=== PATIENT | female | born 1980 | race Caucasian/White ===

== ENCOUNTER → 2016-03-27 | Outpatient (CLI) | payer OTHER ==
--- NOTE | 2016-03-27 11:48 | US ---
March 27, [address] Nieves, Thank you for allowing me to see your patient, Mrs. Mayersfor aneuploidy screening and con sult. As you know she is a , 35 year old G 3, P 1101 . Her due date is 10/01/16 by 6 week ultrasoun d. Based on this dating her current gestational age is 13 weeks 1 day(s) . Saima is known to me from her prior and preconception consultation (02/10/13). Briefly, she suffered a stillbirth at 31 weeks with a negative workup except for clots identified in the umbilical cord. Her next pregnan cy was successful and delivered at 37 weeks by induction of labor. We provided additional ultrasound surveillance and antepartum testing in her next . She had reassuring NIPT in this . ULTRASOUND CRL: 78 mm Gestational Age by CRL: 13 weeks 4 days RUBEN by CRL: 09/28/16 Consistent with established dating (LMP or ultrasound): Yes Nuchal Translucency: 1.4 mm Nasal Bone: Present Heart Rate: 161 bpm Placenta: Fundal posterior Right Ovary: Is not seen on today's ultrasound. Left Ovary: Is not seen on today's ultrasound. No overt structural anomalies were identified for this early ultrasound. The choroids, cord insertion , upper extremities and lower extremities were visualized and appear normal for this gestational age. Please note the full anatomic evaluation has not occurred for this early gestational age. Impression: 1. Intrauterine at 13 w, 1 d, RUBEN of 10/01/16. 2. Nuchal translucency measurement today is 1.4 mm, which is reassuring. 3. Advanced maternal age with reassuring NIPT 4. History of third trimester stillbirth Recommendations: 1. Maternal serum AFP is recommended between 15-20 weeks to screen for the risk of open neural tube defects. 2. Recommend a detailed obstetrical ultrasound between 19 and 20 weeks to evaluate anatomy. 3. Reviewed opportunities for definitive genetic diagnosis by CVS and/or amniocentesis. After our c onversation, your couple DECLINES further testing. 4. Reviewed plans for surveillance in the current given her history of stillbirth -Continue usual care -20 week anatomy ultrasound -Growth at 26 weeks, then monthly until delivery -Twice weekly NSTs (started in last at 28-29 weeks given stillbirth at 31 weeks) -Delivery at early term --37 weeks. Thank you for allowing us the opportunity to evaluate your patient. Should you have any further ques tions or concerns please do not hesitate to contact me. Approximately 15 minutes were spent with the patient and 10 minutes were spent in face to face consu ltation. Joya Gaytan MD [employer] Mixer Operator Maternal Medicine Department of Obstetrics & Gynecology [facility]
--- NOTE | 2016-03-27 12:10 | US ---
Obstetrical Sonogram History: 35-year-old with estimated gestational age of 13 weeks 1 day and EDC of October 01, 2016. Comparison: None available. Findings: There is a single living intrauterine with a heart rate of 161 beats per minute. Average crown-rump length is 7.8 cm, for estimated gestational age of 13 weeks 4 days. Nuchal trans lucency is 1.4 mm. The nasal bone is visible. The amniotic fluid volume is subjectively normal. No overt anatomic abnormality is identified, although assessment is limited by early gestational age. The placenta is posterior/fundal. The ovaries are not visible. Impression: 1. Single living intrauterine gestation with size consistent with dates. 2. Normal nuchal translucency. 3. Detailed anatomic survey is recommended at 19-20 weeks. Please see separate dictation for consultation performed by Joya Mei MD, the same day.
== END ==
LOC: FIMAGING 10:33
PROVIDERS: ATTEND Obstetrics & Gynecology
DX: O09.522 Supervision of elderly multigravida, second trimester (principal); Z3A.13 13 weeks gestation of pregnancy; Z87.59 Personal history of other complications of pregnancy, childbirth and the puerperium

== ENCOUNTER → 2016-05-08 | Outpatient (CLI) | payer OTHER | LOC: FIMAGING 10:35 | PROVIDERS: ATTEND Obstetrics & Gynecology | DX: O09.522 Supervision of elderly multigravida, second trimester (principal); O09.292 Supervision of pregnancy with other poor reproductive or obstetric history, second trimester; Z3A.19 19 weeks gestation of pregnancy ==

== ENCOUNTER 2016-07-02 07:40 | Observation (INO) | payer OTHER ==
[2016-07-02 09:23] LABS: % IMMATURE GRANULYOCYTES 1.4 % (0.0-1.1); ABSOLUTE IMMATURE GRANULOCYTES 0.17 10^3/uL (0.00-0.10); ADD DIFF? NO; ADD MORPH? NO; ADD SCAN? NO; ATYPICAL LYMPHOCYTE FLAG 10 (0-99); COLOR YELLOW; FRAGMENT RBC FLAG 0 (0-99); HEMATOCRIT 36.5 % (38.0-47.0); HEMOGLOBIN 12.5 g/dL (12.6-16.3); LEFT SHIFT FLG 10 (0-99); LEUKOCYTE ESTERASE,URINE NEGATIVE (NEGATIVE); LIPEMIA HEMOLYSIS FLAG 90 (0-99); MEAN CELL HEMOGLOBIN CONCENTR. 34.2 g/dL (32.4-36.7); MEAN CELL VOLUME 87.7 fL (81.5-99.8); MEAN PLATELET VOLUME 9.7 fL (8.7-11.7); NITRITE,URINE NEGATIVE (NEGATIVE); PLATELET CLUMPS FLAG 10 (0-99); PLATELET COUNT 257 10^3/uL (150-400); RED BLOOD CELL COUNT 4.16 10^6/uL (4.18-5.33); RED CELL DISTRIBUTION WIDTH 13.3 % (11.5-15.2)
[2016-07-02 09:29] LABS: BACTERIA 4+ /hpf (NONE SEEN); MUCUS TRACE /lpf (NONE-1+)
--- NOTE | 2016-07-02 10:15 | GHP ---
[f rep st] HISTORY AND PHYSICAL DATE OF ADMISSION: 07/02/2016 CHIEF COMPLAINT: Vaginal bleeding. HISTORY OF PRESENT ILLNESS: The patient is a healthy 35-year-old G3, P1-1-0-1. Her current gestational age is 27 weeks 0 days, dated by last menstrual period and first trimester ultrasound. Her is complicated by advanced maternal age with normal genetic screening, and a history of an intrauterine demise at 31 weeks in her first . She had a negative hypercoagulability workup, but has been on 81 mg of aspirin this . She states that she woke up this morning, and there was a large gush of bright red blood on her underwear. She was advised to come in for evaluation. She denies loss of fluid, abdominal pain or contractions. Her baby remains active. OB labs are notable for blood type O positive, negative antibody screen, hematocrit 42.2. Immune to rubella, nonimmune to varicella, nonreactive to HIV , RPR, and hepatitis B surface antigen, negative urine culture. She has a negative gonorrhea and chlamydia screen. Her 1 hour Glucola was 88. She had a normal cell-free DNA, single marker AFP, and anatomy ultrasound, with an anterior placenta with no previa. PAST MEDICAL HISTORY: Psoriasis, seasonal allergies. History of vaginal delivery x2; in 2012, for a demised fetus at 31 weeks 5 days, and then again a term viable in 2013. SURGICAL HISTORY: None. FAMILY HISTORY: Notable for colon cancer in her maternal grandfather, and history of blood clot in her father. MEDICATIONS: vitamins, aspirin 81 mg. ALLERGIES: None. PHYSICAL EXAMINATION: 125/64, 100, 18, 37.0 GENERAL: Alert, awake, in no acute distress. Alert and oriented x4. LUNGS: Respirations unlabored. CARDIOVASCULAR: Regular rate and rhythm. ABDOMEN: Gravid, soft, nontender. EXTREMITIES: No edema. PELVIC: Sterile speculum exam: Small dark clot of blood removed from vault. Cervix closed in appearance. Very slight trickle of bright blood coming from inside cervix noted. Sterile vaginal exam: Cervix long, closed. FHR baseline 140s, moderate variability, + accels, no decels [place]: mild irritability DIAGNOSTIC STUDIES: Bedside transabdominal ultrasound: Viable fetus in mehrdad breech presentation, anterior placenta which is normal in appearance. Subjectively normal fluid. Cervix appears long and closed. LABORATORY DATA: White blood cell count 11.7, hemoglobin 12.5, hematocrit 36.5 , platelets 257. Urinalysis is normal apart from blood, 4+ bacteria, 4+ glucose , 5-10 RBCs, and 5-10 white blood cells. Urine culture is pending. Group B strep pending. ASSESSMENT AND PLAN: 35-year-old G3, P1101 at 27 weeks 0 days, presents with vaginal bleeding. No evidence of infection, no evidence of labor. No evidence of abruption. status reassuring. Given the fact that she has a slight ongoing trickle of bright red blood, recommend to overnight for monitoring. She is already scheduled for a repeat ultrasound with Maternal Medicine tomorrow, given her history of intrauterine demise. We discussed the risks and benefits of administering corticosteroids for lung maturity. After discussion, she and her would like to hold off on administering steroids at this time, and would only like to proceed if there is a more imminent concern for delivery. Magnesium for neuroprotection not indicated at this time. -Admit to L&D for obs -Regular diet -Saline lock IV -CBC and type and screen collected -Continue monitoring for 1-2 hours, and then if reassuring, will plan for an NST t.i.d. /[id number]/MODL MTDD
--- NOTE | 2016-07-03 08:22 | GDS ---
[f rep st] DISCHARGE SUMMARY ADMISSION DIAGNOSES: 1. Twenty-seven weeks 0 days gestation. 2. Vaginal bleeding in . 3. History of term spontaneous vaginal delivery. 4. History of 31-week intrauterine demise. DISCHARGE DIAGNOSES: 1. Twenty-seven weeks 0 days gestation. 2. Vaginal bleeding in . 3. History of term spontaneous vaginal delivery. 4. History of 31-week intrauterine demise. PROCEDURES: None. CONSULTATIONS: None. HOSPITAL COURSE: Patient is a 35-year-old, G3, P1-1-0-1. She was admitted at 27 weeks 0 days when she awoke with underwear that was soaked with bright-red blood. She was brought to the hospital and was found to have a very slight trickle of ongoing bright-red blood, so she was admitted for furthe r observation. Her monitoring was reassuring. Her cervix was long and closed and there was n o evidence of labor. After admission, she stopped bleeding completely and over the course o f observation overnight she had just very light brown spotting, but no further bright-red blood and no cramping or contractions or evidence of labor. Her status continued to be reassuri ng with reactive heart rate tracing. Should be discharged to home, as she has a formal ultras ound with Maternal Medicine today to follow up growth, and she will also follow up with Dr. Jose G valadez as scheduled in 1 week. DISCHARGE INSTRUCTIONS: Pelvic rest for 72 hours. No lifting greater than 20 pounds. Call for any further bleeding, contractions, or other concerns. DISCHARGE MEDICATIONS: Continue home vitamins. DISPOSITION: Home. CONDITION ON DISCHARGE: Good. /[id number]/MODL
== END 2016-07-03 08:40 | disposition home or self-care (01) ==
LOC: FLD 07:40
PROVIDERS: ADMIT Obstetrics & Gynecology; ATTEND Obstetrics & Gynecology
DX: O46.92 Antepartum hemorrhage, unspecified, second trimester (principal); O09.512 Supervision of elderly primigravida, second trimester; Z3A.27 27 weeks gestation of pregnancy
CPT/HCPCS: G0378 ×2

== ENCOUNTER 2016-07-03 10:30 | Inpatient (IN) | payer OTHER ==
[2016-07-03] MEDS ORDERED: BETAMETHASONE IM SYRINGE IM ONE (13:30)
[2016-07-03] MEDS ORDERED: CALCIUM CARBONATE 500 MG CHEWABLE TAB PO PRN ×2 (14:37→19:54)
[2016-07-03] MEDS ORDERED: ACETAMINOPHEN 325 MG TAB PO PRN (14:37)
--- NOTE | 2016-07-03 15:03 | GHP ---
[f rep st] HISTORY AND PHYSICAL DATE OF ADMISSION: 07/03/2016 CHIEF COMPLAINT: Concern for placental abruption on ultrasound. HISTORY OF PRESENT ILLNESS: The patient is a 35-year-old G3, P1-1-0-1, who was just discharged from the hospital this morning after having an episode of vaginal bleeding yesterday morning at home and being observed in the hospital for 24 hours. She was sent to a previously scheduled maternal medicine ultrasound, which was being done for a history of intrauterine demise at 31 weeks, which occurred in her 1st . The ultrasound demonstrated a 3.5 x 1.5 cm heterogeneous area of the placenta near the uterine fundus concerning for a partial abruption. It was recommended that she return back to labor and delivery for corticosteroid administration for lung maturity and further monitoring. She is currently feeling well. She denies any vaginal bleeding since yesterday. No contractions or pain. Her baby is active. She is 27 weeks, 1 day dated by last menstrual period and first-trimester ultrasound. OB labs are notable for blood type O positive, negative antibody screen, hematocrit 42.2. She is immune to rubella, not immune to varicella, nonreactive to HIV, RPR, and hepatitis B surface antigen with a negative urine culture. She has a negative gonorrhea and chlamydia screen. Her 1 hour Glucola was 88. She had a normal cell free DNA single marker AFP amniotomy ultrasound with an anterior placenta with no previa. PAST MEDICAL HISTORY: Psoriasis, seasonal allergies, history of vaginal delivery x2 in 2012 for demised fetus at 31 weeks 5 days, then again a term viable in 2013. SURGICAL HISTORY: None. FAMILY HISTORY: Notable for colon cancer in her maternal grandfather and a history of VTE in her father. MEDICATIONS: vitamins, aspirin 81 mg, Tylenol 325 mg p.r.n., Tums, Claritin p.r.n. ALLERGIES: None. SOCIAL HISTORY: . No alcohol, tobacco, drugs. She is a building supplies salesperson retail PHYSICAL EXAM: VITAL SIGNS: Within normal limits. GENERAL: Alert, awake, in no acute distress. LUNGS: Respirations nonlabored. CARDIOVASCULAR: Regular rate and rhythm. ABDOMEN: Gravid, soft, nontender. EXTREMITIES: No edema. PELVIC: Deferred. heart rate baseline 140s, moderate variability with 10 x 10 accelerations, no decelerations. Tocometer: No contractions. ASSESSMENT AND PLAN: Patient is a 35-year-old, G3, P1-1-0-1 at 27 weeks 1 day, here with vaginal bleeding that occurred yesterday and evidence of possible partial abruption on ultrasound today. She is currently hemodynamically stable. She has no bleeding, no evidence of labor, and a reassuring status. A GBS swab was collected yesterday and is pending. Urinalysis was normal apart from some blood and bacteria, and a urine culture is pending. Will admit to Labor and Delivery for observation for a minimum of 72 hours, administer corticosteroids for lung maturity, plan monitoring twice daily, regular diet, saline lock IV, regular activity. Possibly home in 72 hours if no further bleeding. /[id number]/MODL MTDD
[2016-07-03] MEDS ORDERED: diphenhydrAMINE 25 MG CAP PO PRN (21:38)
[2016-07-04 09:11] VITALS: BP 109/71; PULSE 109; RESP 16; TEMP 97.9
--- NOTE | 2016-07-04 12:53 | OBPROG ---
OBG Progress Note Assessment/Plan: Assessment: Pt is a 35 y/o at 27+2 weeks EGA admitted with vaginal bleeding, suspected placental abruption - HD#2, hemodynamically stable Plan: 1) status reassuring. Continue with NST BID. BTMZ dose #2 today. 2) Bleeding, resolved. Suspect clinically c/w placental abruption. Will continue observation as inpatient x 72 hrs. 3) Bedrest w/ BRP 4) SCD's for DVT prophylaxis. 5) May restart home meds of tums prn, claritin prn. Hold ASA daily due to bleeding. Counseled regarding POC and likely plan for bedrest at home if discharged in stable condition. 07/04/16 12:53 Subjective: Pt has no complaints. No vaginal bleeding. Small amount of vaginal discharge, but no itching or foul smell. No abdominal pain. +FM. No LOF. No CTX. Objective: Temp Pulse Resp BP Pulse Ox 36.6 C 109 H 16 109/71 07/04/16 09:09 07/04/16 09:09 07/04/16 09:09 07/04/16 09:09 FHR (bpm): 140 FHR Pattern Variability: Moderate FHR Category: 1 - Physical Exam General Appearance: WD/WN, alert, no apparent distress Respiratory: lungs clear Cardiac/Chest: regular rate, rhythm Abdomen: normal bowel sounds, other (gravid, nontender) ICD10 Worksheet Patient Problems: Problems Problem Status Onset Vaginal bleeding in Acute
[2016-07-04] MEDS ORDERED: BETAMETHASONE IM SYRINGE IM ONE (13:30)
[2016-07-04] MEDS: FAMOTIDINE 20 MG TAB PO SCH (20:18)
[2016-07-04] MEDS: diphenhydrAMINE 25 MG CAP PO PRN (20:50)
--- NOTE | 2016-07-05 15:46 | OBPROG ---
OBG Progress Note Assessment/Plan: Assessment: Pt is a 35 y/o at 27+3 weeks EGA admitted with vaginal bleeding, suspected placental abruption - HD#3, hemodynamically stable Plan: 1) status reassuring. Continue with NST BID. s/p BTMZ course completed. 2) Bleeding c/w placental abruption, resolved. Discussed that her brown discharge is c/w old blood, and the pink discharge is not concerning; likely from vaginal discharge. Will continue observation as inpatient x 72 hrs. 3) Bedrest w/ BRP 4) SCD's for DVT prophylaxis. 5) Dispo: Anticipate discharge home tomorrow if she remains clinically stable. Counseled regarding POC and likely plan for bedrest at home if discharged in stable condition. 07/05/16 1340 Subjective: Pt reports having one episode of brown discharge and one episode of pink discharge in the last 24hrs. Mild cramping with ambulation that resolved with rest, no ctx, no BTB, no LOF. Good FM present. No other concerns. Objective: Temp Pulse Resp BP Pulse Ox 36.6 C 109 H 16 109/71 07/04/16 09:09 07/04/16 09:09 07/04/16 09:09 07/04/16 09:09 FHR (bpm): 140 FHR Pattern Variability: Moderate FHR Category: 1 - Physical Exam General Appearance: WD/WN, alert, no apparent distress Respiratory: lungs clear Cardiac/Chest: regular rate, rhythm Abdomen: normal bowel sounds, other (gravid, fundus nontender) ICD10 Worksheet Patient Problems: Problems Problem Status Onset Vaginal bleeding in Acute
--- NOTE | 2016-07-05 17:46 | OBPROG ---
OBG Progress Note Assessment/Plan: Assessment: 27w3d with partial abruption (VB and US e/o abruption) s/p BMTZ No further VB Mild cramping today: no e/o PTL Dec movement over last few hours: Reassuring heart rate tracing Plan: Send urine cx as this was not done on admission (UA sent but cx never was) Will put back on monitor if c/o any further cramping, at this time just endorsing mild soreness in lower abdomen Plan repeat CBC tomorrow to eval for further ongoing bleeding from abruption Dispo to be determined tomorrow, likely home if remains clinically stable Discussed mag sulfate for neuroprotection if any concern for imminent del < 32 weeks 07/05/16 17:42 07/05/16 17:44 Subjective: Called by RN as pt feeling some soreness in lower abdomen and intermittent mild cramping and baby moving slightly less. Still no further BRB, but intermittent light pink/brown discharge with wiping. Objective: Temp Pulse Resp BP Pulse Ox 36.6 C 109 H 16 109/71 07/04/16 09:09 07/04/16 09:09 07/04/16 09:09 07/04/16 09:09 Gen: alert, awake NAD Resp: unlabored CV: RRR Abd: gravid, soft, nontender Ext: no edema SSE: cervix long/closed, no active bleeding SVE: cervix firm, long/closed FHT: Baseline 140, mod [place], + 10x10 accels, carrot stick variable decels appropriate for gestational age [place]:mild irritability with possible ctx x 3 when toco first placed, then resolved throughout remainder of strip with quiet toco - SVE Dilation (cm): 0 Effacement (%): 0 Station: -3 FHR (bpm): 140 FHR Pattern Variability: Moderate Membranes: Intact ICD10 Worksheet Patient Problems: Problems Problem Status Onset Vaginal bleeding in Acute
[2016-07-05] MEDS: FAMOTIDINE 20 MG TAB PO SCH (18:38)
[2016-07-05] MEDS ORDERED: diphenhydrAMINE 25 MG CAP PO PRN (22:28)
[2016-07-05] MEDS ORDERED: CEPACOL LOZENGE PO PRN (22:29)
[2016-07-05] MEDS: diphenhydrAMINE 25 MG CAP PO PRN (22:44)
[2016-07-06 05:49] LABS: HEMOGLOBIN 11.8 g/dL (12.6-16.3); MEAN CELL HEMOGLOBIN 29.7 pg (27.9-34.1); MEAN CELL HEMOGLOBIN CONCENTR. 33.7 g/dL (32.4-36.7); MEAN CELL VOLUME 88.2 fL (81.5-99.8); RED BLOOD CELL COUNT 3.97 10^6/uL (4.18-5.33); RED CELL DISTRIBUTION WIDTH 13.2 % (11.5-15.2)
--- NOTE | 2016-07-06 09:01 | PDDCSUM ---
Discharge Summary Discharge Summary: Discharge DX = 1) IUP at 27+4 weeks, 2) Vaginal bleeding from placental abruption Hospital course: Pt did very well during her stay. She had no further bright red bleeding during her admission. She received a course of BTMZ for lung maturity. She did not have any signs of labor. status remained reassuring with NST's that were appropriate for gestational age. No complaints on the day of discharge. Diet = regular Activity = bedrest F/U with Dr Nieves next Sunday (in 4 days) Call sooner with any bright red bleeding, contractions, leakage of fluid, decrease in movement or pain.
--- NOTE | 2016-07-06 09:02 | OBPROG ---
OBG Progress Note Assessment/Plan: Assessment: Pt is a 35 y/o at 27+3 weeks EGA admitted with vaginal bleeding, suspected placental abruption - HD#4, hemodynamically stable Plan: 1) status reassuring. Continue with NST BID. s/p BTMZ course completed. 2) Bleeding c/w placental abruption, resolved. 3) Bedrest w/ BRP 4) Discharge home today 07/06/16 09:01 Subjective: Pt feeling well, no complaints, no pain/bleeding/cramping. Good FM. Objective: 07/06/16 05:40 Temp Pulse Resp BP Pulse Ox 36.6 C 109 H 16 109/71 07/04/16 09:09 07/04/16 09:09 07/04/16 09:09 07/04/16 09:09 FHR (bpm): 140 FHR Pattern Variability: Moderate FHR Category: 1 ICD10 Worksheet Patient Problems: Problems Problem Status Onset Vaginal bleeding in Acute
== END 2016-07-06 09:45 | disposition home or self-care (01) | DRG 782 ==
LOC: FIMAGING 10:30 → FLD 12:37 → OBSVTOIN 14:38
PROVIDERS: ADMIT Obstetrics & Gynecology; ATTEND Obstetrics & Gynecology
DX: O45.92 Premature separation of placenta, unspecified, second trimester (principal); Z3A.27 27 weeks gestation of pregnancy; O09.522 Supervision of elderly multigravida, second trimester
CPT/HCPCS: J0702

== ENCOUNTER → 2016-07-17 | Outpatient (CLI) | payer OTHER | LOC: FIMAGING 11:35 | PROVIDERS: ATTEND Obstetrics & Gynecology | DX: O09.523 Supervision of elderly multigravida, third trimester (principal); Z3A.29 29 weeks gestation of pregnancy ==

== ENCOUNTER → 2016-07-27 | Outpatient (CLI) | payer OTHER | LOC: FIMAGING 11:17 | PROVIDERS: ATTEND Obstetrics & Gynecology | DX: O09.293 Supervision of pregnancy with other poor reproductive or obstetric history, third trimester (principal); O09.523 Supervision of elderly multigravida, third trimester; Z3A.30 30 weeks gestation of pregnancy ==

== ENCOUNTER → 2016-08-22 | Outpatient (CLI) | payer OTHER | LOC: FIMAGING 09:40 | PROVIDERS: ATTEND Obstetrics & Gynecology | DX: O09.523 Supervision of elderly multigravida, third trimester (principal); O09.293 Supervision of pregnancy with other poor reproductive or obstetric history, third trimester; Z3A.34 34 weeks gestation of pregnancy ==

== ENCOUNTER 2016-09-09 17:00 | Observation (INO) | payer OTHER ==
--- NOTE | 2016-09-09 18:17 | SOAPPROG ---
SOAP Progress Note Assessment/Plan: Assessment: 35 yo @ 36 6/7, here for IOL of labor for history of demise, now transverse position. Plan: 09/09/16 18:15 Recommend NPO after midnight, f/u in am for delivery. Patient agrees with this plan. Subjective: 35 yo @ 36 6/7, here for IOL of labor for history of demise, Objective: vss NST 130s, mod variability, +accels, US confirms transverse lie normal subjective fluid volum ICD10 Worksheet Patient Problems: Problems Problem Status Onset Placental abruption in second trimester Acute Placental abruption in third trimester Acute Vaginal bleeding in Acute
== END 2016-09-09 18:25 | disposition home or self-care (01) ==
LOC: INTOOBSV 17:01 → FLD 17:01
PROVIDERS: ADMIT Obstetrics & Gynecology; ATTEND Obstetrics & Gynecology
DX: O32.2XX0 Maternal care for transverse and oblique lie, not applicable or unspecified (principal); O09.293 Supervision of pregnancy with other poor reproductive or obstetric history, third trimester; O09.523 Supervision of elderly multigravida, third trimester; Z3A.36 36 weeks gestation of pregnancy
CPT/HCPCS: G0378

== ENCOUNTER 2016-09-10 04:09 | Inpatient (IN) | payer OTHER ==
[2016-09-10] MEDS ORDERED: LR 1,000 ML IV SCH (07:00)
[2016-09-10] MEDS ORDERED: ceFAZolin 2 GM/DEXTROSE 100 ML IV ONE (07:00)
[2016-09-10] MEDS ORDERED: LR 500 ML IV ONE (07:00)
[2016-09-10] MEDS ORDERED: CITRIC ACID/SODIUM CITRATE 30 ML UDCUP PO ONE (07:00)
[2016-09-10 07:19] LABS: % IMMATURE GRANULYOCYTES 1.5 % (0.0-1.1); ABSOLUTE IMMATURE GRANULOCYTES 0.14 10^3/uL (0.00-0.10); ADD DIFF? NO; ADD MORPH? NO; ADD SCAN? NO; ATYPICAL LYMPHOCYTE FLAG 10 (0-99); FRAGMENT RBC FLAG 0 (0-99); HEMATOCRIT 37.1 % (38.0-47.0); HEMOGLOBIN 12.5 g/dL (12.6-16.3); LEFT SHIFT FLG 10 (0-99); LIPEMIA HEMOLYSIS FLAG 80 (0-99); MEAN CELL HEMOGLOBIN 29.6 pg (27.9-34.1); MEAN CELL HEMOGLOBIN CONCENTR. 33.7 g/dL (32.4-36.7); MEAN CELL VOLUME 87.9 fL (81.5-99.8); MEAN PLATELET VOLUME 11.2 fL (8.7-11.7); PLATELET CLUMPS FLAG 10 (0-99); PLATELET COUNT 208 10^3/uL (150-400); RED BLOOD CELL COUNT 4.22 10^6/uL (4.18-5.33); RED CELL DISTRIBUTION WIDTH 13.6 % (11.5-15.2)
--- NOTE | 2016-09-10 08:10 | PREANESOB ---
Obstetric Pre-Anesthesia Info - General Info Proposed Procedure: section NPO Start Time: 00:00 : 3 Para: 2 - Info Status: Full Term (transverse presentation) - Labor Status Section History: Primary Indications for Current Section: Abnormal Lie Anesthesia ROS: indigestion with . Seasonal allergies. Allergies/Adverse Reactions: Allergy/AdvReac Type Severity Reaction Status Date / Time No Known Allergies Allergy Verified 09/02/13 20:41 Home Medications: Medication Instructions Recorded Concept Dha 1 tab PO DAILY 09/02/13 Famotidine [Pepcid 20 MG (*)] 20 mg PO DAILY #0 tab 07/06/16 Visit Medications: Generic Name Dose Route Start Last Admin Trade Name Freq PRN Reason Stop Dose Admin Lactated Ringer's 1,000 mls @ 125 mls/hr 09/10/16 07:00 Lr IV 03/09/17 06:59 CONT FATMATA Discontinued Medications Generic Name Dose Route Start Last Admin Trade Name Freq PRN Reason Stop Dose Admin Citric Acid/Sodium Citrate 30 ml 09/10/16 07:00 Bicitra PO 09/10/16 07:01 ONCALL ONE Cefazolin Sodium/Dextrose 100 mls @ 200 mls/hr 09/10/16 07:00 Ancef 2 Gm (Premix) IV 09/10/16 07:29 ONCALL ONE Protocol Lactated Ringer's 500 mls @ 0 mls/hr 09/10/16 07:00 Lr IV 09/10/16 07:01 ONCE ONE As Directed - Anesthesia History Response to Local Anesthetics: Normal (dental procedures) Family Anesthesia History: Negative - Social History Substance Use/Abuse: Denies - Focused Exam Blood Pressure: 125/81 Heart Rate: 88 Respiratory Rate: 18 Height/Weight (Nursing): Height 167.64 cm Weight 85.275 kg Weight: 85.2 kg Height: 167.6 cm Respiratory: lungs clear Cardiovascular: regular rate, rhythm ASA Status: II Labs: 09/10/16 06:35 - Plan Anesthetic Plan: Spinal anesthesia with intrathecal morphine proc./risks/ benefits discussed. Consent Signed and on Chart: Yes General Comments: Questions answered.
--- NOTE | 2016-09-10 08:20 | PDHPUP ---
History & Physical Update H&P update statement: This history and physical update is based on an assessment of the patient which was completed after admission or registration (within 24 hours), but prior to the surgery/procedure. H&P update: H&P reviewed & patient examined H&P changes: Baby is now in transverse presentation with head on the right side/RUQ. Patient has been counseled extensively, and she desires to proceed with section. Declines ECV. She also strongly desires BTL, as long as baby cries and appears to be healthy at time of delivery. Declines interval BTL or male vasectomy. All risks of surgery reviewed to include risks of infection, bleeding, blood transfusion, damage to surrounding structures and organs, and hysterectomy. All questions answered.
[2016-09-10] MEDS ORDERED: PHENYLEPHRINE HCL 100 MCG/ML SYR IVP PRN (10:10)
[2016-09-10] MEDS ORDERED: fentaNYL 100 MCG/2 ML INJ IVP PRN (10:10)
--- NOTE | 2016-09-10 10:13 | OBDEL ---
Info Type: Primary GBS+: No Indications for Delivery: Elective (NOT ELECTIVE = hx of IUFD in prior ) Operative Report - Delivery Pre-op Diagnoses: 1) IUP at 37+0 weeks, 2) Hx IUFD, 3) Transverse presentation Post-op Diagnoses: jerod Nulliparous Prior to Delivery: No Presentation at Delivery: Transverse Lie Procedure: Scheduled, Low Transverse, Tubal Ligation Surgeon: Gloria Nieves Wire Web Worker: Mariam Tesfaye Anesthesiologist: Wilmer Cantu L&Mohini Analgesia/Anesthesia Type: Spinal Complications: None Findings: Baby in transverse presentation. Specimen(s)/Path: Fallopian Tube(s) IV Fluid (ml): 1,000 EBL: 800 cc Drains: Other (Specify) (gustafson) [place] Data [place] Delivery Date: 09/10/16 Delivery Time: 09: RUBEN: 10/01/16 Gestational Age: 37 week(s) and 0 day(s) Sex of Infant: Female [place] Weight (gm): 3064 g Score (1 Min): 8 Score (5 Min): 9 ICD10 Worksheet Patient Problems: Problems Problem Status Onset History of intrauterine , currently in third trimester Acute Transverse presentation delivered Acute Placental abruption in second trimester Acute Placental abruption in third trimester Acute Vaginal bleeding in Acute - ICD10 Problem Qualifiers (1) History of intrauterine , currently in third trimester (2) Transverse presentation delivered
--- NOTE | 2016-09-10 10:13 | POSTANESTH ---
Post Anesthetic Evaluation Cardiovascular Status: Normal, Stable Respiratory Status: Normal, Stable Level of Consciousness/Mental Status: Can Participate in Eval Pain Control: Adequate, Prn Tx Ordered Nausea/Vomiting Control: Adequate, Prn Tx Ordered Complications Possibly Related to Anesthesia: None Noted (Comfortable. T6 level to touch)
[2016-09-10] MEDS ORDERED: PROMETHAZINE HCL 25 MG/ML INJ IVP PRN (10:15)
[2016-09-10] MEDS ORDERED: ACETAMINOPHEN 325 MG TAB PO PRN (10:15)
[2016-09-10] MEDS ORDERED: OXYTOCIN/RINGERS LACTATE 1,000 ML IV SCH (10:30)
[2016-09-10] MEDS: KETOROLAC 30 MG/1 ML SDV IVP PRN ×2 (11:50→17:53)
[2016-09-10] MEDS ORDERED: NORFLURANE/HFC SPRAY 103.5 ML SPRAY TP ONE (11:58)
--- NOTE | 2016-09-10 13:06 | GOP ---
[f rep st] OPERATIVE REPORT DATE OF OPERATION: 09/10/2016 SURGEON: Gloria Nieves MD CLINICAL SYSTEMS ANALYST: SATYA Parry. ANESTHESIA: Spinal. PREOPERATIVE DIAGNOSIS: 1. Intrauterine at 37 weeks and 0 days estimated gestational age. 2. History of intrauterine in prior , currently . 3. Transverse presentation. 4. Desires permanent sterilization. POSTOPERATIVE DIAGNOSIS: 1. Intrauterine at 37 weeks and 0 days estimated gestational age. 2. History of intrauterine in prior , currently . 3. Transverse presentation. 4. Desires permanent sterilization. PROCEDURE PERFORMED: 1. Primary low transverse section. 2. Bilateral tubal ligation. FINDINGS: 1. Normal uterus, fallopian tubes, and ovaries. 1. Delivered a female , weighing 3064 g with Apgars of 8 and 9, found to be in the transverse presentation and delivered breech. 2. SPECIMENS: Bilateral fallopian tube segments. ESTIMATED BLOOD LOSS: 800 cc. INDICATIONS: Patient is a 35-year-old 3, para 1101, female at 37 weeks and 0 days estimated gestational age with history of prior intrauterine . She was planning for delivery at 3 7 weeks, and due to the baby's presentation with transverse lie, the patient was counseled on the op tions for an external cephalic version with induction of labor versus a section, and she dennison s decided to proceed with a section. She also strongly desires to have permanent steriliza tion. DESCRIPTION OF PROCEDURE: Patient was taken to the operating room where spinal anesthesia was found be adequate. Patient was prepared and draped in the normal sterile fashion in dorsal supine positi on with a left tilt. Ancef 2 g IV was administered prior to skin incision. After confirmation of a dequate anesthesia, a low-transverse skin incision was made and carried down to the level of the fas erin with the scalpel and Bovie for hemostasis. The fascia was incised in the midline and extended l aterally bilaterally with the Servin scissors. The fascia was dissected off the rectus muscles superi greyson and inferiorly with the Bovie. The peritoneal cavity was entered bluntly, and the incision ext ended superiorly and inferiorly. A bladder blade was placed. An incision was made in the vesicouterine peritoneum and extended laterally bilaterally. The bladde r was then dissected away from the lower uterine segment digitally. A low transverse uterine incisi on was made and extended digitally. The presentation was then palpated and confirmed to be tr ansverse. With careful palpation, the feet and legs were reached and easily brought down to the absentee-shawnee rine incision. Both feet were brought down to the incision and then delivered. The legs were deliv ered and buttocks delivered easily. The baby was then wrapped with a green moist towel, and the arm s were then delivered by sequentially sweeping them across the chest. The baby's head was then deli ashley atraumatically with fundal pressure. A spontaneous cry was noted. The cord was then doubly c lamped and cut. The baby was handed off to the waiting nurse practitioner. Cord blood was obtained. The placenta was then delivered with uterine massage. The uterus was then exteriorized on the maternal abdomen and wiped with dry lap sponges to remove all residual membranes. The uterin e incision was then closed with a running locked stitch of 0 Monocryl. A second layer of closure wa s completed with the same suture. Hemostasis was assured. Pitocin was administered intravenously, and the uterine tone improved. The posterior cul-de-sac was then irrigated with copious amounts of normal saline and noted to be clear. Attention was then turned to the patient's fallopian tubes. The right fallopian tube was grasped with a Elisa clamp in the mid isthmic area. A segment of tub e was then suture ligated with 2 separate ties of 0 catgut. The intervening segment of tube was exc ised with the Metzenbaum scissors, and hemostasis was obtained with the Bovie. Attention was then t urned to the patient's left fallopian tube where, in a similar fashion, a [place] clamp was placed i n the mid isthmic area, and an intervening segment of tube was suture ligated with 2 separate ties o f 0 catgut. The intervening segment of tube was then excised with Metzenbaum scissors, and hemostas is was obtained with use of Bovie. Both tubes were hemostatic. The uterine incision was reexamined and noted to be hemostatic. The uterus was placed back in the maternal abdomen, and the gutters we re wiped with moist lap sponges bilaterally. The uterine incision was reexamined, hemostasis was as sured. The rectus muscle surfaces and fascial surfaces were examined closely, and hemostasis obtain ed with the use of the Bovie. The fascia was then closed with a running nonlocked stitch of #1 PDS. The subcutaneous tissue was irrigated with copious amounts of normal saline and reapproximated wit h interrupted stitches of 2-0 Vicryl. The skin was then closed with a subcuticular stitch of 4-0 Mo nocryl. Steri-Strips and bandage dressings were placed. A vaginal Crede exam was performed, and small amount of blood removed from the vaginal vault. All s ponge, lap, and needle counts correct x2. Patient was transferred to the PACU in stable and good co ndition. COMPLICATIONS: None. DRAINS: Franks to gravity. INTRAVENOUS FLUIDS: 1000 cc. URINE OUTPUT: 300 cc. /[id number]/MODL
[2016-09-10] MEDS: PROCTOFOAM HC 10 GM CAN PR SCH ×2 (17:23→22:48)
[2016-09-11] MEDS: KETOROLAC 30 MG/1 ML SDV IVP PRN ×2 (00:07→06:21)
[2016-09-11] MEDS: SIMETHICONE 80 MG TAB CHEW PO PRN ×3 (00:10→08:59)
[2016-09-11] MEDS: HYDROCODONE/APAP 5/325 TAB PO PRN ×5 (04:58→20:38)
[2016-09-11] MEDS: PROCTOFOAM HC 10 GM CAN PR SCH ×4 (06:36→21:19)
--- NOTE | 2016-09-11 08:46 | OBPP ---
Progress Note Assessment/Plan: Assessment: 35 y.o. female s/p primary C/S following IOL @ 37 weeks due to hx of IUFD @ 31 weeks. Recovering well. . Plan: Routine post-op/ post- orders. D/C gustafson, IV, plexi-pulse stocking and abdominal bandage. Encourage ambulation. consult. 09/11/16 08:43 Subjective: Reports good pain control and minimal vaginal bleeding. well. Incision CDI. Has been out of bed to bathroom and denies vertigo. Eating and drinking well without nausea or vomiting. Appropriate mood with good support system. Objective: 09/10/16 06:35 Patient ABO/Rh O POSITIVE 09/10/16 06:35 Temp Pulse Resp BP Pulse Ox 36.4 C 88 18 117/78 94 09/11/16 04:00 09/11/16 04:00 09/11/16 00:00 09/11/16 04:00 09/11/16 04:00 Uterine Position/Fundal Height: Umbilicus -1 Uterine Tone: Firm Physical Exam - Physical Exam General Appearance: WD/WN, alert, no apparent distress EENT: normal ENT inspection Neck: non-tender, full range of motion, normal inspection Respiratory: lungs clear, normal breath sounds Cardiac/Chest: regular rate, rhythm Abdomen: non-tender, soft Extremities: non-tender, normal inspection Back: Normal inspection Skin: normal color, warm/dry Neuro/Psych: alert, normal mood/affect, oriented x 3
[2016-09-11] MEDS: DOCUSATE SODIUM 100 MG CAP PO PRN ×2 (09:00→19:30)
[2016-09-11 09:40] LABS: HEMATOCRIT 31.9 % (38.0-47.0); HEMOGLOBIN 10.9 g/dL (12.6-16.3)
[2016-09-11] MEDS: IBUPROFEN 600 MG TAB PO PRN ×2 (12:24→18:34)
[2016-09-11] MEDS ORDERED: MAGNESIUM HYDROXIDE 30 ML UDCUP PO PRN (21:00)
[2016-09-11] MEDS ORDERED: LACTULOSE 20 GM/30 ML UDCUP PO PRN (21:00)
[2016-09-11] MEDS ORDERED: BISACODYL 10 MG SUPP PR PRN (21:00)
[2016-09-11] MEDS ORDERED: POLYETHYLENE GLYCOL 3350 17 GM PKT PO PRN (21:00)
[2016-09-11] MEDS: SENNOSIDES/DOCUSATE SODIUM TAB PO SCH (21:18)
[2016-09-12] MEDS: IBUPROFEN 600 MG TAB PO PRN ×2 (00:39→06:44)
[2016-09-12] MEDS: HYDROCODONE/APAP 5/325 TAB PO PRN (00:39)
[2016-09-12 03:22] VITALS: PULSE 82
[2016-09-12] MEDS: PROCTOFOAM HC 10 GM CAN PR SCH (06:45)
--- NOTE | 2016-09-12 07:44 | OBGCSDC ---
General Delivery Information - General Info : 3 Para: 3 Independent Film Maker: Gloria Nieves Admission Date: 09/10/16 Labs: Patient ABO/Rh O POSITIVE 09/10/16 06:35 Hct 31.9 % (38.0-47.0) L 09/11/16 09:25 Vaginal - Diagnosis Presentation at Delivery: Transverse Lie - Operations/Procedures L&D Analgesia/Anesthesia Type: Spinal - Delivery Number of Prior Sections: 0 Indications for Current Section: Abnormal Lie Type: Primary Surgical Procedures: Scheduled Intra-op Complications: None L&D Analgesia/Anesthesia Type: Spinal - Hospital Course Antepartum: H/o IUFD. Partial abruption in 2nd trimester. Scheduled C/S at 37 weeks for h/o IUFD, abruption, and transverse lie Intrapartum: Uncomplicated primary C/S + BTL : Routine post-op course. Rh pos Data [place] Delivery Date: 09/10/16 Delivery Time: 09:23 RUBEN: 10/01/16 Gestational Age: 37 week(s) and 2 day(s) Sex of : Female [place] Weight (gm): 3064 kg Score (1 Min): 8 Score (5 Min): 9 Discharge Information - Discharge Information Discharge Medications: Hydrocodone, Ibuprofen Condition: Good Instruction/Follow Up: Two Weeks Discharge Physician/CNM: Vesta Ge
[2016-09-12] MEDS: SENNOSIDES/DOCUSATE SODIUM TAB PO SCH (07:57)
[2016-09-12 08:55] VITALS: BP 117/80; RESP 16; TEMP 98.2; O2SAT 95
== END 2016-09-12 11:45 | disposition home or self-care (01) | DRG 766 ==
LOC: FLD 04:09 → FOB 12:06
PROVIDERS: ADMIT Obstetrics & Gynecology; ATTEND Obstetrics & Gynecology
PROC: 0UL70ZZ Occlusion of Bilateral Fallopian Tubes, Open Approach (ICD-10-PCS; principal; 2016-09-11)
PROC: 10D00Z1 Extraction of Products of Conception, Low, Open Approach (ICD-10-PCS; principal; 2016-09-11)
DX: O32.2XX0 Maternal care for transverse and oblique lie, not applicable or unspecified (principal); Z30.2 Encounter for sterilization; Z3A.37 37 weeks gestation of pregnancy; Z37.0 Single live birth
CPT/HCPCS: J0690; J1885; J2550